=== PATIENT | male | born 1955 | race Caucasian/White ===

== ENCOUNTER 2020-06-05 12:36 | Emergency (ER) | payer OTHER ==
[2020-06-05 13:12] LABS: PTT,PARTIAL THROMBOPLSTIN TIME 21.4 SEC (22.0-34.0)
[2020-06-05 13:13] LABS: ANION GAP 15.7 mEq/L (7-13); CHLORIDE,CL 107 mmol/L (98-107); SODIUM,NA 144 mmol/L (136-145)
--- NOTE | 2020-06-05 13:31 | CT ---
EXAMINATION: Head wo Cont SEX: Male AGE: 65 years CLINICAL HISTORY: 65-year-old male injured fall down stairs. Left facial/right shoulder bruise. "Numbness" extremities. Scan technique: Volume acquisition of data emergency unenhanced CT scan of the head and brain obtained with the patient lying supine on the Siemens multislice scanner [place], [place]. All data archived in the PACS system for storage, reformatting axial/sagittal/coronal planes and study (bone/soft tissue windows). Interpretation: 1. Uniformly thick bony calvarium. No sign of skull fracture, underlying brain contusion or epidural/subdural hematoma. 2. Infraorbital soft tissue swelling face, on the left. Normal orbits and the zygomatic arches intact. Normal TMJs. 3. No foreign bodies. Symmetric clear pneumatization of the paranasal sinuses (sclerosis mastoid sinus on the left). 4. No supratentorial or posterior fossa mass lesion. 5. No ischemic infarct or signs of encephalomalacia. No arachnoid cyst. 6. No sign of acute intracerebral, intraventricular or subarachnoid bleed. CONCLUSION: No sign of skull fracture or closed head injury.
--- NOTE | 2020-06-05 13:52 | CT ---
EXAMINATION: Cervical Spine wo Cont SEX: Male AGE: 65 years CLINICAL HISTORY: 65-year-old male injured in fall down stairs. Possible loss of consciousness. Numbness/tingling lower extremities. Scan technique: Volume acquisition of data from the cervical, thoracic and lumbar SPINE obtained without oral or IV contrast while patient was lying supine on the Siemens multislice scanner [place], [place]. All data archived in the PACS system for storage, reformatting axial/sagittal/coronal planes and study. Interpretation: 1. Homogeneous normal bone mineral density for age and gender. 2. Straightening of usual cervical lordosis and evidence of chronic multilevel cervical disc degeneration with associated hypertrophic marginal and uncinate spur formation from C3 through C7 levels. Cord contusion? 4. No sign of prevertebral soft tissue swelling, cervical fracture, spondylolisthesis (dislocation) or jumped locked facet. No pathologic skeletal lesions. 5. No cervical rib anomalies. First ribs unremarkable and normal medial clavicles. Lung apices clear. 6. Multilevel upper/mid/lower thoracic disc disease i.e. interspace narrowing with hypertrophic marginal spur formation (spondylosis) particularly prominent anteriorly and laterally, on the right. 7. No sign of pathologic skeletal lesion, thoracic fracture or spondylolisthesis. 8. No paraspinal soft tissue hematoma and the posterior ribs unremarkable. No pneumothorax. 9. Subtle thoracolumbar scoliosis. Good bone mineral density lumbar spine. Chronic multilevel mid and lower lumbar disc disease with associated hypertrophic spondylosis particularly L3-4, L4-5 and L5-S1 levels. Spondylolysis L5. 10. Anterolisthesis L5 vertebral body. No sign of pathologic skeletal lesion, acute lumbar fracture or other dislocation. #11. Symmetric normal SI and hip joints without arthritic degenerative change. 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 Spondylolysis/spondylolisthesis L5 vertebral body. *No sign of pathologic skeletal lesion or acute spinal fracture.
[2020-06-05] MEDS ORDERED: fentaNYL 100 MCG/2 ML SDV IVPUSH ONE (14:09)
--- NOTE | 2020-06-05 14:16 | CT ---
EXAMINATION: Shoulder wo Cont Rt SEX: Male AGE: 65 years CLINICAL HISTORY: 65-year-old male injured FALL downstairs. (Left face bruised; right shoulder contusion; bilateral extremity "numbness/tingling"). Scan technique: Volume acquisition of data right shoulder girdle and ipsilateral hemithorax obtained with the patient lying supine on the Siemens multislice scanner [place], [place]. All data archived in the PACS system for storage, reformatting axial/sagittal/coronal planes and study. Interpretation: 1. Homogeneous normal bone mineral density. Chronic arthritic changes right A/C joint. 2. No sign of right shoulder fracture or acute dislocation. Scapula intact. 3. No juxta articular rotator cuff tendon calcification. 4. Underlying ribs upper right hemithorax unremarkable. 5. Multilevel lower cervical and upper thoracic disc disease with hypertrophic marginal spondylosis. 6. Right lung apex clear. No lung contusion, atelectasis or right-sided pneumothorax. CONCLUSION: No right shoulder fracture or dislocation.
--- NOTE | 2020-06-05 15:10 | EDM.PDOC ---
ED HPI GENERAL MEDICAL PROBLEM <Aida Cardoza - Last Filed: 06/05/20 16:06> - General Source of Information: Reports: Patient, EMS, EMS Notes Reviewed, Family, RN, RN Notes Reviewed History Limitations: Reports: No Limitations - History of Present Illness Onset: Today, Sudden <LnychRacquel - Last Filed: 06/06/20 10:42> - General Chief Complaint: Trauma Time Seen by Provider: 06/05/20 12:40 - History of Present Illness INITIAL COMMENTS - FREE TEXT/NARRATIVE: Patient is a 65-year-old male who presents to ER per [facility] as a trauma code. Patient states he was assisting someone in a wheelchair up some steps when he fell down the steps. EMS reports he fell approximately 4 stairs, complains of neck pain, tingling, and paresthesia to the arms and legs. Patient arrived with c-collar in place, head blocks, and on a spine board. GCS upon arrival was 15. Primary assessment patient is alert and oriented and able to tell us the mechanism of injury and incident. Patient has a laceration to the left upper cheek that is bleeding, patient has dried blood on his face, no other lacerations, abrasions, contusions. Patient complains of neck pain, and severe right shoulder pain. Patient states he is unable to lift his arms or squeeze fists bilaterally. Patient states he is able to move his toes and feet, but cannot bend his knees or lift his legs. 1335 c-collar removed, C-spine cleared. At 1 hour GCS equals 15. After all scans returned negative and c-collar removed, patient continues to complain of neck pain upper shoulder pain, weakness, numbness and tingling to the arms bilaterally. Patient is able to bend his knees at this time, but unable to lift his arms off the bed and hold them. Grasp is very weak bilaterally to the upper extremities. GCS at discharge equals 15. (Racquel Lynch) - Related Data Allergies Allergy/AdvReac Type Severity Reaction Status Date / Time No Known Allergies Allergy Verified 06/05/20 14:14 Review of Systems - Review of Systems Review Of Systems: Comprehensive ROS is negative, except as noted in HPI. <Racquel Lynch - Last Filed: 06/06/20 10:42> ED EXAM, GENERAL - Physical Exam Exam: See Below Exam Limited By: Physical Impairment General Appearance: Alert, WD/WN, Anxious, Moderate Distress Eye Exam: Bilateral Eye: EOMI, Normal Inspection Ears: Normal External Exam, Hearing Grossly Normal Nose: Normal Inspection, Nasal Swelling, Other (contusion, abrasion) Throat/Mouth: Normal Inspection, Normal Voice, No Airway Compromise Head: Facial Swelling, Facial Tenderness, Other (laceration to the left cheek) Neck: Normal Inspection, Limited Range of Motion, Tender Lateral, Tender Midline Respiratory/Chest: No Respiratory Distress, Lungs Clear, Normal Breath Sounds, No Accessory Muscle Use, Chest Non-Tender Cardiovascular: Normal Peripheral Pulses, Regular Rate, Rhythm, No Edema, No Gallop, No JVD, No Murmur, No Rub Peripheral Pulses: 2+: Radial (L), Radial (R), Dorsalis Pedis (L), Dorsalis Pedis (R) GI/Abdominal: Normal Bowel Sounds, Soft, Non-Tender (Male) Exam: Deferred Rectal (Males) Exam: Deferred Back Exam: Normal Inspection, Decreased Range of Motion Extremities: Normal Inspection, Limited Range of Motion (upper arm parasthesia and weakness) Neurological: Alert, Oriented, Normal Cognition, Sensory/Motor Deficit (numbness and tingling to upper extrem bilaterally) Psychiatric: Normal Affect, Normal Mood, Anxious Skin Exam: Warm, Dry, Normal Color, No Rash, Wound/Incision (1.5cm laceration to the left upper cheek) Lymphatic: No Adenopathy <Racquel Lynch - Last Filed: 06/06/20 10:42> ED TRAUMA PROCEDURES - Laceration/Wound Repair Left Cheek Lac/Wound Length In cm: 1.5 Appearance: Subcutaneous Distal NVT: Neuro & Vascular Intact Anesthetic Type: Local Local Anesthesia - Lidocaine (Xylocaine): 1% Plain Local Anesthetic Volume: 2cc Skin Prep: Chlorhexidine (Hibiciens) Exploration/Debridement/Repair: Wound Explored, In a Bloodless Field, No Foreign Material Found Closed With: Sutures Suture Size: 6-0 # of Sutures: 6 Suture Type: Prolene, Interrupted, Simple Sterile Dressing Applied: None Tetanus Status Addressed: Yes Complications: No <Aida Cardoza - Last Filed: 06/05/20 16:06> #1 Interpretation EKG Date: 06/05/20 Time: 13:20 Rhythm: NSR Rate (Beats/Min): 68 [place]: Normal P-Wave: Present QRS: Normal ST-T: Normal QT: Normal Comparison: NA - No Prior EKG <Racquel Lynch - Last Filed: 06/06/20 10:42> Course <Racquel Lynch - Last Filed: 06/06/20 10:42> - Orders/Labs/Meds Labs: Laboratory Tests 06/05/20 06/05/20 06/05/20 Range/Units 12:46 12:46 12:46 WBC 7.5 (5.0-10.0) 10^3/uL PT 9.8 (9.0-12.0) SEC INR 1.0 (0.9-1.2) APTT 21.4 L (22.0-34.0) SEC Sodium 144 (136-145) mmol/L Potassium 3.7 (3.5-5.1) mmol/L Chloride 107 (98-107) mmol/L Carbon Dioxide 25 (21-32) mmol/L Anion Gap 15.7 H (7-13) mEq/L BUN 15 (7-18) mg/dL Creatinine 1.04 (0.70-1.30) mg/dL Est Cr Clr Drug Dosing TNP Estimated GFR (MDRD) > 60 BUN/Creatinine Ratio 14.4 (No establ ref range) Glucose 112 H (74-99) mg/dL Calcium 8.3 L (8.5-10.1) mg/dL Total Bilirubin 0.6 (0.2-1.0) mg/dL AST 18 (15-37) U/L ALT 41 (16-63) U/L Alkaline Phosphatase 52 (46-116) U/L Total Protein 6.7 (6.4-8.2) g/dL Albumin 3.7 (3.4-5.0) g/dL Globulin 3.0 Albumin/Globulin Ratio 1.2 Ethyl Alcohol < 3 (0) mg/dL Meds: Medications Discontinued Medications Generic Name Dose Route Start Last Admin Trade Name Freq PRN Reason Stop Dose Admin Fentanyl 50 mcg 06/05/20 14:09 06/05/20 14:14 Fentanyl 100 Mcg/2 Ml Sdv IVPUSH 06/05/20 14:10 50 mcg ONETIME ONE Administration Hydromorphone HCl 1 mg 03/29/21 15:35 06/05/20 15:44 Hydromorphone 1 Mg/Ml Syringe IVPUSH 06/05/20 15:36 1 mg ONETIME ONE Administration Lidocaine HCl 30 ml 06/05/20 15:35 06/05/20 15:45 Lidocaine 1% 30 Ml Sdv INJECT 06/05/20 15:36 30 ml ONETIME ONE Administration - Radiology Interpretation Free Text/Narrative:: Cervical/thoracic/lumbar spine CT without contrast: Chronic multilevel disc degeneration and hypertrophic arthritic changes of the spine. Spondylolysis/spondylolisthesis L5 vertebral body. No sign of pathological skeletal lesion or acute spinal fracture. Head CT with out contrast: No sign of skull fracture closed head injury Right shoulder CT without contrast: No right shoulder fracture or dislocation. (Racquel Lynch) Departure <Aida Cardoza - Last Filed: 06/05/20 16:06> - Departure Time of Disposition: 16:10 Condition: Fair - Discharge Information *PRESCRIPTION DRUG MONITORING PROGRAM REVIEWED*: No *COPY OF PRESCRIPTION DRUG MONITORING REPORT IN PATIENT RAMY: No <Racquel Lynch - Last Filed: 06/06/20 10:42> - Departure Disposition: DC/Tfer to Acute Hospital 02 Clinical Impression: Numbness and tingling in both hands, Neck pain, Upper extremity weakness Fall Qualifiers: Encounter type: initial encounter Qualified Code(s): W19.XXXA - Unspecified fall, initial encounter - Discharge Information Referrals: Jojo Richard NP [Primary Care Provider] - Forms: ED Department Discharge, Interfacility Transfer [facility]
[2020-06-05] MEDS ORDERED: HYDROmorphone 1 MG/ML Syringe IVPUSH ONE (15:35)
[2020-06-05] MEDS ORDERED: Lidocaine 1% 30 ML SDV INJECT ONE (15:35)
== END 2020-06-05 16:50 ==
LOC: DL.ED 12:36
DX: S01.412A Laceration without foreign body of left cheek and temporomandibular area, initial encounter (principal); M54.2 Cervicalgia; R20.2 Paresthesia of skin; R53.1 Weakness; W10.9XXA Fall (on) (from) unspecified stairs and steps, initial encounter
CPT/HCPCS: 12011; 36415; 70450; 72125; 72128; 72131; 73200; 80053; 80307; 85025; 85610; 85730; 93005; 96374; 96375; 99285; J1170; J3010; 93010; 99284

== ENCOUNTER 2023-04-11 05:48 | Day surgery (SDC) | payer OTHER ==
[2023-04-11] MEDS ORDERED: Midazolam 1 MG/ML 2 ML SDV IV ONE (05:49)
[2023-04-11] MEDS ORDERED: fentaNYL 100 MCG/2 ML SDV IV ONE (05:49)
[2023-04-11] MEDS ORDERED: Midazolam 1 MG/ML 2 ML SDV ONE (06:11)
[2023-04-11] MEDS ORDERED: fentaNYL 100 MCG/2 ML SDV ONE (06:11)
[2023-04-11] MEDS: Dextrose 5%-0.45% NaCl 1,000 ML IV SCH (06:31)
[2023-04-11] MEDS: fentaNYL 100 MCG/2 ML SDV IV ONE ×2 (06:48→06:49)
[2023-04-11] MEDS: Midazolam 1 MG/ML 2 ML SDV IV ONE ×5 (06:49→06:55)
== END 2023-04-11 08:26 | disposition home or self-care (01) ==
LOC: DL.ENDO 05:48
PROVIDERS: ATTEND Internal Medicine Gastroenterology
DX: Z12.11 Encounter for screening for malignant neoplasm of colon (principal); D12.2 Benign neoplasm of ascending colon; I10 Essential (primary) hypertension; E78.5 Hyperlipidemia, unspecified; Z68.32 Body mass index [BMI] 32.0-32.9, adult; Z79.899 Other long term (current) drug therapy; E66.9 Obesity, unspecified
CPT/HCPCS: 45385; J2250; J3010; J7042